=== PATIENT | male | born 1960 | race American Indian/Alaskan Native ===

== ENCOUNTER 2021-02-16 08:03 | Day surgery (SDC) | payer BC, OTHER ==
[~2021-02-16 08:03] MED LIST: ERGOCALCIF50000 UNIT PO; FENOFIBRATE160 MG PO; GLIPIZIDE10 MG PO; LISINOPRIL10 MG PO; METFORMIN HCL1000 MG PO; SIMVASTATIN10 MG PO
--- NOTE | 2021-02-16 09:29 | NUR ---
02/16/21 0929 Yayo Coleman CBG 143 ON ENTRY TO PACU. MD AWARE.PT DENIES NAUSEA OR PAIN. FALLS ASLEEP EASILY.
--- NOTE | 2021-02-16 12:36 | OR ---
[facility] [address] [place], [place] [address] Signed DATE OF OPERATION: 02/16/2021 SURGEON: Tania Garcia MD PREOPERATIVE DIAGNOSES: 1. Screening. 2. Diverticulosis. 3. Internal hemorrhoids. 4. Mother with colonic polyps. POSTOPERATIVE DIAGNOSES: 1. Moderate diverticulosis. 2. Moderate internal hemorrhoids. 3. Moderate left prostate nodule. 4. 5 mm polyp at 42 cm. 5. 4 mm polyp at 20 cm (rectosigmoid junction/rectum). PROCEDURE: Colonoscopy with hot biopsy. ESTIMATED BLOOD LOSS: None. INDICATIONS: Anthony is a 61-year-old gentleman asked to see me for a followup colonoscopy. He had a negative screening colonoscopy back in 2010. We know he has pandiverticulosis along with internal hemorrhoids. He has no polyps previously. On this occasion, he did tell me his mother had colonic polyps removed. However, her other medical conditions apparently have precluded any further endoscopies. He said he has no lower GI complaints. In the office, I gave him a pamphlet on colonoscopy. We had reviewed that together along with the risks including, but not limited to gas bloating, crampy abdominal pain, bleeding, perforation requiring surgery, and missed diagnosis. We also discussed the need for IV conscious sedation. He had expressed understanding and wished to proceed. PROCEDURE NOTE: Anthony was taken into our endoscopy suite and placed in the left lateral decubitus position. He was given a total of 9 mg of Versed and 150 mcg of fentanyl to cover the case. A digital rectal exam was performed and he has a moderately enlarged and indurated prostate gland. He probably has a left prostate nodule. He might consider Electronically Signed By: TANIA GARCIA MD 02/16/21 1236 PATIENT NAME: ANTHONY SOSA OPERATIVE REPORT DATE OF : 62 REPORT #: [id number] PHYSICIAN: TANIA GARCIA MD PCP: GLORIA JACOBS REPORT IS CONFIDENTIAL AND NOT TO BE RELEASED WITHOUT AUTHORIZATION [facility] [address] [place], [place] [address] Signed having that more thoroughly evaluated. The adult colonoscope had been introduced and advanced all around into the cecum under direct visualization of camera. It took a few minutes to get through the sigmoid colon along with some abdominal compression and additional medication. His prep was good. We could easily see the appendiceal orifice and the ileocecal valve. The scope was then slowly withdrawn. He does have moderate pandiverticulosis. The two polyps mentioned above were removed with the help of hot biopsy forceps. The rectum was otherwise unremarkable. Upon retroflexion of scope of course he does have moderate internal hemorrhoids. After this, the gas was suctioned out and colonoscope removed. Anthony tolerated the procedure quite well. RECOMMENDATIONS: I will see Anthony back in my office in 7 to 14 days to review his results. He will be on the 5-year rotation given his mother's history and probably his own personal history. He should have that left prostate nodule more thoroughly evaluated. Tania Garcia MD ALB/MODL /[id number] cc: Tania Garcia MD [facility] Copies: TANIA GARCIA MD ~ Electronically Signed By: TANIA GARCIA MD 02/16/21 1236 PATIENT NAME: IANANTHONY SHOOK OPERATIVE REPORT DATE OF : 62 REPORT #: [id number] PHYSICIAN: TANIA GARCIA MD PCP: GLORIA JACOBS REPORT IS CONFIDENTIAL AND NOT TO BE RELEASED WITHOUT AUTHORIZATION
--- NOTE | 2021-02-20 16:16 | PATH ---
[facility] [address] [place], [place] [address] Signed SPECIMEN(S): A COLON POLYP 42 CM SPECIMEN(S): B COLON POLYP 20 CM SPECIMEN SOURCE: A. COLON POLYP 42 CM B. COLON POLYP 20 CM CLINICAL HISTORY: Internal hemorrhoids, diverticulosis. MICROSCOPIC DESCRIPTION: Histologic sections of all submitted blocks are examined by light microscopy. These findings, together with the gross examination, support the pathologic diagnosis. FINAL PATHOLOGIC DIAGNOSIS: A. Colon, polyp at 42 cm, polypectomy: - Fragments of tubular adenoma. - Negative for high-grade dysplasia or malignancy. B. Colon, polyp at 20 cm, polypectomy: - Hyperplastic polyp. - Negative for dysplasia or malignancy. NAL:cml:C2NR GROSS DESCRIPTION: Two specimens are received in two containers, labeled "Anthony Cox." A. The specimen, labeled " Anthony Cox, #1," and designated on the requisition "colon polyp at 42 cm," is received in formalin and consists of two anaya soft tissue fragment(s) that measure 0.4 and 0.4 cm in greatest dimension. The specimen is entirely submitted in cassette (A1). B. The specimen, labeled " Anthony Cox, #2," and designated on the requisition "colon polyp at 20 cm," is received in formalin and consists of one anaya soft tissue fragment that measures 0.4 cm in greatest dimension. The specimen is entirely submitted in cassette (B1). FB (under the direct supervision of a pathologist) The Gross Description was prepared using a voice recognition system. The report was reviewed for accuracy; however, sound-alike word errors, addition and/or deletions may occur. If there is any question about this report, please contact Client Services. PERFORMING LABORATORY: PATIENT NAME: ANTHONY COX PATHOLOGY DATE OF : 62 REPORT #: [id number] PHYSICIAN: EARLINE BANDA PCP: GLORIA JACOBS REPORT IS CONFIDENTIAL AND NOT TO BE RELEASED WITHOUT AUTHORIZATION [facility] [address] [place] [address] Signed The technical component was performed by [employer], [address] [place] [address] (Cane Splicer: Samantha Booth MD; CLIA# [id number]). [facility], [address] [place] [id number] (CLIA# [id number]). Diagnostician: Shila Damon MD Pathologist Electronically Signed 02/20/2021 Copies: ~ PATIENT NAME: ANTHONY COX PATHOLOGY DATE OF : 62 REPORT #: [id number] PHYSICIAN: EARLINE BANDA PCP: REYNALDO,GLORIA PATIENT SERVICE REP-C REPORT IS CONFIDENTIAL AND NOT TO BE RELEASED WITHOUT AUTHORIZATION
== END 2021-02-16 10:14 | disposition home or self-care (01) ==
LOC: DS 08:03 → OPS 08:03
PROVIDERS: ATTEND Colon & Rectal Surgery
PROC: 0DBN8ZX Excision of Sigmoid Colon, Via Natural or Artificial Opening Endoscopic, Diagnostic (ICD-10-PCS; principal; 2021-02-16 09:45)
DX: Z12.11 Encounter for screening for malignant neoplasm of colon (principal); D12.7 Benign neoplasm of rectosigmoid junction; K57.30 Diverticulosis of large intestine without perforation or abscess without bleeding; K64.0 First degree hemorrhoids; N40.2 Nodular prostate without lower urinary tract symptoms; E78.00 Pure hypercholesterolemia, unspecified; I10 Essential (primary) hypertension; E78.1 Pure hyperglyceridemia; E11.9 Type 2 diabetes mellitus without complications; N40.0 Benign prostatic hyperplasia without lower urinary tract symptoms; F17.210 Nicotine dependence, cigarettes, uncomplicated; Z79.84 Long term (current) use of oral hypoglycemic drugs
CPT/HCPCS: 99153; G0500; J2250; J3010; J7121